=== PATIENT | female | born 1970 | race Caucasian/White ===

== ENCOUNTER → 2018-12-07 | Outpatient (CLI) | payer OTHER ==
[~2018-12-07] VITALS: Ht 172.7 cm; Wt 108.9 kg
[~2018-12-07] MED LIST: ADENOSINE 90 MG/30 ML INJ IV ONE; DIPYRIDAMOLE (5MG/ML) 10 ML VIAL IV ONE; DIPYRIDAMOLE 60 MG in D5W 5% 50 ML IV SCH
== END | disposition home or self-care (01) ==
LOC: Rad HDHVI 08:49
PROVIDERS: ATTEND Internal Medicine Cardiovascular Disease
DX: I20.9 Angina pectoris, unspecified (principal)
CPT/HCPCS: 78452; 93005; 93306; 96374; 96375; A9500; J1245